=== PATIENT | female | born 1960 | race Caucasian/White ===

== ENCOUNTER 2020-10-25 16:49 | Emergency (ER) | payer OTHER ==
[~2020-10-25 16:49] MED LIST: ATENOLOL25 M1 PO; AUGMENTIN 875-1 EACH PO; BREO ELLIPTA 11 EACH PO; CITALOPRAM HBR20 MG PO; EMLA CREAM5 GM TOP; HCTZ25 MG PO; MEDROL 4MG DOSEP4 MG PO; NORCO 5-325 TA1 EAC1 PO; PERCOCET 5-3251 EACH PO; VITAMIN D-32000 UNI1 PO
[2020-10-25 18:28] LABS: BASOPHIL 0.2 % (0-2); EOSINOPHIL 0 % (0-5); HCT 38.4 % (37.0-47.0); HGB 12.6 g/dl (12.5-16.0); LYMPHOCYTE 34.4 % (15-48); MCH 29.7 pg (25.0-31.0); MCHC 32.8 g/dL (32.0-36.0); MCV 90.6 fL (78.0-100.0); MONOCYTE 9.3 % (0-12); MPV 12.5 fL (6.0-9.5); NEUTROPHIL 56.1 % (41-80); NRBC 0; PLT 151 K/uL (150-400); RBC 4.24 M/uL (4.20-5.40); RDW 14.3 % (11.5-14.0); WBC 4.5 K/uL (4.0-10.5)
[2020-10-25 18:37] LABS: INR 0.99 (0.9-1.2); PROTHROMBIN TIME 12.5 SECONDS (11.8-13.4)
[2020-10-25 18:38] LABS: PTT 29.9 SECONDS (24.4-34.7)
[2020-10-25 18:47] LABS: ALBUMIN 3.1 g/dL (3.4-5.0); BILIRUBIN - TOTAL 0.4 mg/dL (0.2-1.0); BUN/CREAT RATIO (CALC) 12.2 RATIO; CREATININE 0.74 mg/dL (0.51-0.95); GLOBULIN (CALCULATION) 3.9 g/dL; POTASSIUM 3.4 mmol/L (3.5-5.1)
[2020-10-26] MEDS ORDERED: MEDROL 4MG DOSEP4 MG PO (05:10)
[2020-10-26] MEDS ORDERED: ONDANSETRON ODT4 MG PO (05:10)
[2020-10-26] MEDS ORDERED: VIBRAMYCIN100 MG PO (05:10)
== END 2020-10-26 05:30 | disposition home or self-care (01) ==
LOC: FER 16:49
PROVIDERS: Emergency Medicine
DX: U07.1 COVID-19 (principal); J45.909 Unspecified asthma, uncomplicated; I11.0 Hypertensive heart disease with heart failure; I50.9 Heart failure, unspecified; Z88.2 Allergy status to sulfonamides; Z88.8 Allergy status to other drugs, medicaments and biological substances
CPT/HCPCS: 36415; 71046; 71275; 80053; 84484; 85025; 85379; 85610; 85730; 93005; J2405; M0243; Q0244; Q9967

== ENCOUNTER → 2021-02-03 | Day surgery (SDC) | payer OTHER ==
[~2021-02-03] VITALS: Ht 162.6 cm; Wt 104.3 kg
[~2021-02-03] MED LIST changes: +ASCORBIC ACID500 MG PO; +DULERA 200 MCG8.8 GM INH; +GABAPENTIN300 MG PO; +KLOR-CON M2020 MEQ PO; +LASIX20 MG PO; +NORCO 5-325 TA1 EACH PO; +OMEPRAZOLE40 MG PO; +ONDANSETRON ODT4 MG PO; +VIBRAMYCIN100 MG PO; +ZYRTEC10 M3 PO
[2021-02-03 12:09] LABS: HCT 38.1 % (37.0-47.0); HGB 12.6 g/dl (12.5-16.0); MCH 30.5 pg (25.0-31.0); MCHC 33.1 g/dL (32.0-36.0); MCV 92.3 fL (78.0-100.0); MPV 12.2 fL (6.0-9.5); RBC 4.13 M/uL (4.20-5.40); RDW 14.4 % (11.5-14.0); WBC 9.3 K/uL (4.0-10.5)
[2021-02-03 12:27] LABS: ALBUMIN 3.7 g/dL (3.4-5.0); BILIRUBIN - TOTAL 0.4 mg/dL (0.2-1.0); BUN/CREAT RATIO (CALC) 22.4 RATIO; CREATININE 0.76 mg/dL (0.51-0.95); GLOBULIN (CALCULATION) 3.6 g/dL; POTASSIUM 3.8 mmol/L (3.5-5.1); TOTAL PROTEIN 7.3 g/dL (6.4-8.2)
== END | disposition home or self-care (01) ==
LOC: FAS 07:30
PROVIDERS: Orthopaedic Surgery
DX: G56.03 Carpal tunnel syndrome, bilateral upper limbs (principal)
CPT/HCPCS: 36415; 80053; J1100; J1170; J2250; J2405; J2704; J3010; J7120

== ENCOUNTER 2021-03-13 17:06 | Emergency (ER) | payer OTHER ==
[2021-03-13 21:09] LABS: BASOPHIL 0.5 % (0-2); EOSINOPHIL 1.5 % (0-5); HCT 38.2 % (37.0-47.0); HGB 12.6 g/dl (12.5-16.0); LYMPHOCYTE 38.7 % (15-48); MCV 94.1 fL (78.0-100.0); MONOCYTE 8.3 % (0-12); MPV 12.9 fL (6.0-9.5); NEUTROPHIL 50.6 % (41-80); NRBC 0; PLT 190 K/uL (150-400); RBC 4.06 M/uL (4.20-5.40); RDW 13.2 % (11.5-14.0); WBC 8.4 K/uL (4.0-10.5)
[2021-03-13 21:29] LABS: BUN/CREAT RATIO (CALC) 18.4 RATIO; C-REACTIVE PROTEIN 0.2 mg/dL (<=0.90); CREATININE 0.76 mg/dL (0.51-0.95); POTASSIUM 3.4 mmol/L (3.5-5.1)
[2021-03-14] MEDS ORDERED: ROBAXIN750 MG PO (01:00)
[2021-03-14] MEDS ORDERED: IBUPROFEN800 MG PO (01:00)
== END 2021-03-14 01:05 | disposition home or self-care (01) ==
LOC: FER 17:06
PROVIDERS: Emergency Medicine Emergency Medical Services
DX: M25.512 Pain in left shoulder (principal); R07.9 Chest pain, unspecified; I10 Essential (primary) hypertension; J45.909 Unspecified asthma, uncomplicated; E11.9 Type 2 diabetes mellitus without complications; Z88.1 Allergy status to other antibiotic agents; Z88.8 Allergy status to other drugs, medicaments and biological substances; Z79.899 Other long term (current) drug therapy; W19.XXXA Unspecified fall, initial encounter
CPT/HCPCS: 36415; 71045; 73030; 80048; 82550; 84484; 85025; 85379; 86140; 93005; 93971; J1100; J1170; J1885; J2405; J2800; J7050

== ENCOUNTER → 2021-04-28 | Day surgery (SDC) | payer OTHER ==
[~2021-04-28] VITALS: Ht 162.6 cm; Wt 108.4 kg
[~2021-04-28] MED LIST changes: +ADVAIR 100-501 EACH INH; +CELEXA20 MG PO; +IBUPROFEN800 MG PO; +PROTONIX 40MG T40 MG PO; +ROBAXIN750 MG PO
[2021-04-28 10:24] LABS: BUN/CREAT RATIO (CALC) 21.1 RATIO; CREATININE 0.71 mg/dL (0.51-0.95); POTASSIUM 3.7 mmol/L (3.5-5.1)
== END | disposition home or self-care (01) ==
LOC: FAS 04-14 11:00
PROVIDERS: Anesthesiology
DX: G56.02 Carpal tunnel syndrome, left upper limb (principal); M75.32 Calcific tendinitis of left shoulder; I10 Essential (primary) hypertension; J45.909 Unspecified asthma, uncomplicated; K21.9 Gastro-esophageal reflux disease without esophagitis; G47.33 Obstructive sleep apnea (adult) (pediatric); F41.9 Anxiety disorder, unspecified; F32.A Depression, unspecified; Z88.1 Allergy status to other antibiotic agents; Z88.8 Allergy status to other drugs, medicaments and biological substances; Z79.899 Other long term (current) drug therapy
CPT/HCPCS: 36415; 80048; J1100; J1885; J2250; J2405; J2704; J3010; J7120